=== PATIENT | female | born 1960 | race Caucasian/White ===

== ENCOUNTER 2018-12-21 21:21 | Inpatient (IN) | payer BC ==
[2018-12-21 22:39] LABS: ADD MAN DIFF? NO
[2018-12-21 22:42] LABS: WHITE BLOOD COUNT 6.8 10^3/ul (4.8-10.8)
[2018-12-21 22:42] LABS: ABNORMAL IP MESSAGE 1; BASOPHILS % 0.3 % (0.0-2.0); EOSINOPHILS # 0.1 10^3/ul (0.0-0.5); EOSINOPHILS % 0.7 % (0.0-7.0); LYMPHOCYTES % 14.2 % (15.0-51.0); MEAN CORPUSCULAR HEMOGLOBIN 31.8 pg (29.0-33.0); MEAN CORPUSCULAR HGB CONC 31.8 g/dl (32.0-37.0); MEAN PLATELET VOLUME 10.7 fl (7.4-10.4); MONOCYTE # 0.2 10^3/ul (0.3-0.9); MONOCYTES % 2.4 % (0.0-11.0); NEUTROPHIL # 5.5 10^3/ul (1.6-7.5); NEUTROPHILS % 81.2 % (39.0-77.0); NUCLEATED RED BLOOD CELLS% 0.4 /100WBC (0.0-0.0); PLATELET COUNT 73 10^3/UL (140-415); RED CELL DISTRIBUTION WIDTH 20.6 % (11.5-14.5)
[2018-12-21 22:59] LABS: POSITIVE DIFF @See below
[2018-12-21 23:01] LABS: ADD UMIC YES; ALANINE AMINOTRANSFERASE 54 IU/L (13-69); ALBUMIN 2.2 g/dl (3.3-4.9); ALKALINE PHOSPHATASE 223 IU/L (42-121); ANION GAP 16 (5-13); ASPARTATE AMINO TRANSFERASE 61 IU/L (15-46); BILIRUBIN,INDIRECT 1.8 mg/dl (0-1.1); BILIRUBIN,TOTAL 2.7 mg/dl (0.2-1.3); CALCIUM 7.9 mg/dl (8.4-10.2); CARBON DIOXIDE 25 mmol/L (21-31); CHLORIDE 100 mmol/L (97-110); GLUCOSE 96 mg/dl (70-220); INR 1.53; LIPASE 43 U/L (23-300); POTASSIUM 4.5 mmol/L (3.5-5.1); PROTIME 18.5 Sec (11.9-14.9); PT RATIO 1.4; SODIUM 141 mmol/L (135-144); TOTAL PROTEIN 5.3 g/dl (6.1-8.1); UR ASCORBIC ACID NEGATIVE (NEGATIVE); UR BACTERIA FEW /HPF (NONE SEEN); UR BILIRUBIN (Dip) NEGATIVE (NEGATIVE); UR BLOOD (Dip) 2+ mg/dL (NEGATIVE); UR BUDDING YEAST MANY /HPF (NONE SEEN); UR CLARITY CLOUDY (CLEAR); UR COLOR AMBER (YELLOW); UR GLUCOSE (Dip) NEGATIVE (NEGATIVE); UR KETONES (Dip) NEGATIVE (NEGATIVE); UR LEUKOCYTE ESTERASE (Dip) 3+ Leu/ul (NEGATIVE); UR MUCUS FEW /HPF (NONE SEEN); UR NITRITE (Dip) NEGATIVE (NEGATIVE); UR RBC 22 /HPF (0-5); UR SPECIFIC GRAVITY (Dip) 1.015 (1.003-1.030); UR TOTAL PROTEIN (Dip) 1+ mg/dl (NEGATIVE); UR UROBILINOGEN (Dip) NEGATIVE (NEGATIVE); UR WBC > 182 /HPF (0-5)
[2018-12-21 23:02] LABS: PARTIAL THROMBOPLASTIN TIME 46.8 Sec (23.0-35.0)
[2018-12-21 23:07] LABS: Estimated GFR 9 mL/min (>60)
[2018-12-21] MEDS: SOD CHLORIDE 0.9% 0 ML IV (23:09)
[2018-12-21 23:10] LABS: BLOOD UREA NITROGEN 128 mg/dl (7-20); CREATININE 5.02 mg/dl (0.44-1.00)
[2018-12-21 23:12] LABS: TROPONIN-I < 0.012 ng/ml (0.000-0.120)
[2018-12-21] MEDS ORDERED: ONDANSETRON 4 MG INJ IV (23:30)
[2018-12-21] MEDS ORDERED: ACETAMINOPHEN 325 MG TAB PO (23:30)
[2018-12-21] MEDS: SOD CHLORIDE 0.9% 1,000 ML IV (23:48)
[2018-12-22] MEDS ORDERED: HYDROCODONE/APAP (5/325) TAB PO
[2018-12-22] MEDS ORDERED: ONDANSETRON 4 MG INJ IV
[2018-12-22] MEDS ORDERED: ACETAMINOPHEN 325 MG TAB PO
[2018-12-22] MEDS ORDERED: NACL 0.9% 3 ML SYG IV
[2018-12-22 00:17] LABS: LACTIC ACID 2.7 mmol/L (0.5-2.0)
[2018-12-22] MEDS: HYDROCODONE/APAP (5/325) TAB PO (00:19)
[2018-12-22] MEDS: morphine 4 MG/ML VIAL IV (00:24)
[2018-12-22 03:46] LABS: LACTIC ACID 3.1 mmol/L (0.5-2.0)
[2018-12-22] MEDS ORDERED: PENDING SANTYL ORDER FOR WOUND CARE XX (05:30)
[2018-12-22] MEDS: CEFTRIAXONE 1 GM/50 ML (PMX) 50 ML IVPB ×2 (08:33)
[2018-12-22] MEDS: HEPARIN 5,000 UNIT/1 ML VIAL SC (08:39)
[2018-12-22] MEDS ORDERED: VANCOMYCIN IV PER PHARMACY XX (09:00)
[2018-12-22] MEDS: SOD CHLORIDE 0.9% 1,000 ML IV (09:48)
[2018-12-22 12:34] LABS: AADO2 Arterial 37.4 mmHg (7.0-24.0); Allen Test ACCEPTAB; Arterial Base Excess -0.4 mmol/L (-3.0-3); Arterial Blood Gas Oxygen Sat 93.6 mmHG (95.0-98.0); Arterial COHb 0.1 % (0.0-3.0); Arterial HCO3 22.7 mmol/L (22.0-26.0); Arterial MetHb 0.5 % (0.0-1.5); Arterial pCO2 31.3 mmhg (35-45); MODE ROOM AIR; Site Right Radial
[2018-12-22] MEDS: PHYTONADIONE 10 MG in DEXTROSE 5% 50 ML IVPB (14:12)
[2018-12-22] MEDS: ALBUMIN HUMAN 25% 100 ML IV ×2 (14:28→21:08)
[2018-12-22] MEDS: FLUCONAZOLE 100 MG/50 ML (PMX) 50 ML IVPB ×2 (14:30→14:57)
[2018-12-22 15:07] LABS: ADD MAN DIFF? NO
[2018-12-22 15:12] LABS: ABNORMAL IP MESSAGE 1; BASOPHILS % 0.3 % (0.0-2.0); EOSINOPHILS # 0.1 10^3/ul (0.0-0.5); HEMATOCRIT 26.3 % (37.0-47.0); HEMOGLOBIN 8.6 g/dl (12.0-16.0); LYMPHOCYTES # 1.1 10^3/ul (0.8-2.9); MEAN CORPUSCULAR HEMOGLOBIN 30.5 pg (29.0-33.0); MEAN CORPUSCULAR HGB CONC 32.7 g/dl (32.0-37.0); MEAN CORPUSCULAR VOLUME 93.3 fl (82.0-101.0); MEAN PLATELET VOLUME 10.7 fl (7.4-10.4); MONOCYTE # 0.2 10^3/ul (0.3-0.9); MONOCYTES % 3.3 % (0.0-11.0); NEUTROPHIL # 5.5 10^3/ul (1.6-7.5); NEUTROPHILS % 77.5 % (39.0-77.0); NUCLEATED RED BLOOD CELLS% 0.6 /100WBC (0.0-0.0); PLATELET COUNT 63 10^3/UL (140-415); RED BLOOD COUNT 2.82 10^6/ul (4.20-5.40); RED CELL DISTRIBUTION WIDTH 21.2 % (11.5-14.5)
[2018-12-22 15:34] LABS: ALANINE AMINOTRANSFERASE 53 IU/L (13-69); ALBUMIN 2.4 g/dl (3.3-4.9); ALKALINE PHOSPHATASE 201 IU/L (42-121); ANION GAP 16 (5-13); ASPARTATE AMINO TRANSFERASE 51 IU/L (15-46); BILIRUBIN,INDIRECT 1.6 mg/dl (0-1.1); BILIRUBIN,TOTAL 2.6 mg/dl (0.2-1.3); CALCIUM 7.5 mg/dl (8.4-10.2); CARBON DIOXIDE 23 mmol/L (21-31); CHLORIDE 101 mmol/L (97-110); CHOL/HDL RATIO 7.3 RATIO; CHOLESTEROL 95 mg/dl (100-200); GLUCOSE 82 mg/dl (70-220); HDL CHOLESTEROL 13 mg/dl (37-92); LDL CHOLESTEROL,CALCULATED 64 mg/dl; MAGNESIUM 2.2 mg/dl (1.7-2.5); POSITIVE DIFF @See below; POTASSIUM 4.4 mmol/L (3.5-5.1); SODIUM 140 mmol/L (135-144); TOTAL PROTEIN 5.4 g/dl (6.1-8.1); TRIGLYCERIDES 92 mg/dl (0-149)
[2018-12-22] MEDS: LIDOCAINE 1% (MPF) 5 ML VIAL SC (15:39)
[2018-12-22 15:40] LABS: Estimated GFR 8 mL/min (>60)
[2018-12-22 15:41] LABS: % IRON SATURATION 51 % SAT (22-52); TOTAL IRON BINDING CAPACITY 144 ug/dl (241-421)
[2018-12-22 15:48] LABS: BLOOD UREA NITROGEN 128 mg/dl (7-20); CREATININE 5.25 mg/dl (0.44-1.00); IRON 74 ug/dl (35-150)
[2018-12-22] MEDS: VANCOMYCIN HCL 2 GM in SOD CHLORIDE 0.9% 500 ML IVPB (15:58)
[2018-12-22 16:08] LABS: LACTIC ACID 2.8 mmol/L (0.5-2.0)
[2018-12-22 16:37] LABS: FOLATE 10.1 ng/ml (2.8-20.0)
[2018-12-22 16:50] LABS: ANISOCYTOSIS 2+ (0-0); BAND NEUTROPHILS #M 0.8 10^3/ul (0.0-0.6); BAND NEUTROPHILS % (M) 12 % (0-4); EOSINOPHILS % (M) 4 % (0-7); LYMPHOCYTES #M 1.3 10^3/ul (0.8-2.9); LYMPHOCYTES % (M) 19 % (15-51); METAMYELOCYTES %M 1 % (0-0); MONOCYTE #M 0.2 10^3/ul (0.3-0.9); MONOCYTES % (M) 3 % (0-11); PLATELET ESTIMATE DECREASED; POIKILOCYTOSIS 3+ (0-0); POLYCHROMASIA 3+ (0-0); SEG NEUT #M 4.3 10^3/ul (1.6-7.5); SEGMENTED NEUTROPHILS (M) % 60 % (39-77); SMUDGE%M 6 % (0-0)
[2018-12-22 17:13] LABS: AMMONIA 92 umol/l (9-30)
[2018-12-22 17:17] LABS: PLATELET COUNT 75 10^3/UL (140-415)
[2018-12-22 17:42] LABS: PROTIME 20.1 Sec (11.9-14.9); PT RATIO 1.6
[2018-12-22 17:43] LABS: PARTIAL THROMBOPLASTIN TIME 45.1 Sec (23.0-35.0)
[2018-12-22 17:45] LABS: D-DIMER 3371.23 ng/ml (<460); THROMBIN TIME 18.6 SEC (13.8-19.1)
[2018-12-22 18:30] LABS: HEPATITIS B SURFACE ANTIGEN NEGATIVE (NEGATIVE)
[2018-12-22 18:47] LABS: HEPATITIS B SURFACE ANTIBODY NEGATIVE (NEGATIVE)
[2018-12-22 18:49] LABS: FIBRIN SPLIT PRODUCT >10 and <40 ug/ml (<10)
[2018-12-22 20:28] LABS: HEMOGLOBIN A1C 4.9 % (0-5.9)
[2018-12-22 20:53] LABS: TYPE AND SCREEN 1
[2018-12-22 21:57] LABS: IMMEDIATE SPIN CROSSMATCH 1 3
[2018-12-22] MEDS: NYSTATIN 30 GM POWDER BTL TOP (22:05)
[2018-12-23 04:28] LABS: ADD UMIC YES; UR ASCORBIC ACID NEGATIVE (NEGATIVE); UR BACTERIA FEW /HPF (NONE SEEN); UR BILIRUBIN (Dip) NEGATIVE (NEGATIVE); UR BLOOD (Dip) 2+ mg/dL (NEGATIVE); UR BUDDING YEAST MANY /HPF (NONE SEEN); UR CLARITY CLOUDY (CLEAR); UR COLOR AMBER (YELLOW); UR GLUCOSE (Dip) NEGATIVE (NEGATIVE); UR KETONES (Dip) TRACE mg/dL (NEGATIVE); UR LEUKOCYTE ESTERASE (Dip) 3+ Leu/ul (NEGATIVE); UR MUCUS FEW /HPF (NONE SEEN); UR NITRITE (Dip) NEGATIVE (NEGATIVE); UR RBC 53 /HPF (0-5); UR SPECIFIC GRAVITY (Dip) 1.014 (1.003-1.030); UR TOTAL PROTEIN (Dip) NEGATIVE (NEGATIVE); UR UROBILINOGEN (Dip) NEGATIVE (NEGATIVE); UR WBC 88 /HPF (0-5)
[2018-12-23 04:30] LABS: POTASSIUM,URINE RANDOM 58.6 mmol/L (25-125)
[2018-12-23 04:38] LABS: SODIUM,URINE RANDOM < 13 mmol/L (30-90)
[2018-12-23] MEDS: ALBUMIN HUMAN 25% 100 ML IV (05:18)
[2018-12-23] MEDS: PANTOPRAZOLE 40 MG INJ IV (05:20)
[2018-12-23 06:46] LABS: WHITE BLOOD COUNT 3.7 10^3/ul (4.8-10.8)
[2018-12-23 06:46] LABS: ABNORMAL IP MESSAGE 1; HEMATOCRIT 21.6 % (37.0-47.0); MEAN CORPUSCULAR HEMOGLOBIN 30.4 pg (29.0-33.0); MEAN CORPUSCULAR HGB CONC 32.4 g/dl (32.0-37.0); MEAN CORPUSCULAR VOLUME 93.9 fl (82.0-101.0); MEAN PLATELET VOLUME 10.2 fl (7.4-10.4); NUCLEATED RED BLOOD CELLS% 0.5 /100WBC (0.0-0.0); PLATELET COUNT 70 10^3/UL (140-415); RED CELL DISTRIBUTION WIDTH 22.6 % (11.5-14.5)
[2018-12-23 06:56] LABS: ADD MAN DIFF? YES; POSITIVE DIFF @See below
[2018-12-23 07:11] LABS: ALANINE AMINOTRANSFERASE 48 IU/L (13-69); ALBUMIN 2.5 g/dl (3.3-4.9); ALKALINE PHOSPHATASE 151 IU/L (42-121); ANION GAP 13 (5-13); ASPARTATE AMINO TRANSFERASE 42 IU/L (15-46); BILIRUBIN,INDIRECT 1.7 mg/dl (0-1.1); BILIRUBIN,TOTAL 2.8 mg/dl (0.2-1.3); CALCIUM 7.1 mg/dl (8.4-10.2); CARBON DIOXIDE 23 mmol/L (21-31); CHLORIDE 106 mmol/L (97-110); GLUCOSE 60 mg/dl (70-220); SODIUM 142 mmol/L (135-144)
[2018-12-23 07:17] LABS: Estimated GFR 9 mL/min (>60)
[2018-12-23 07:21] LABS: BLOOD UREA NITROGEN 124 mg/dl (7-20); CREATININE 4.79 mg/dl (0.44-1.00)
[2018-12-23 08:07] LABS: ANISOCYTOSIS 2+ (0-0); BAND NEUTROPHILS #M 0.5 10^3/ul (0.0-0.6); BAND NEUTROPHILS % (M) 15 % (0-4); BURR CELLS 1+ (0-0); EOSINOPHILS % (M) 3 % (0-7); ERYTHROBLAST% (NRBC) (M) 1 % (0-0); LYMPHOCYTES #M 0.8 10^3/ul (0.8-2.9); LYMPHOCYTES % (M) 24 % (15-51); METAMYELOCYTES %M 1 % (0-0); MICROCYTOSIS 1+ (0-0); MONOCYTES % (M) 2 % (0-11); MYELOCYTES % (M) 1 % (0-0); OVALOCYTES 1+ (0-0); PLATELET ESTIMATE SIG DECREASED; POIKILOCYTOSIS 2+ (0-0); POLYCHROMASIA 3+ (0-0); PROMYELOCYTES % (M) 1 % (0-0); REACTIVE LYMPHOCYTES #M 0.1 10^3/ul (0.0-0.0); REACTIVE LYMPHOCYTES% (M) 3 % (0-0); SEG NEUT #M 1.9 10^3/ul (1.6-7.5); SEGMENTED NEUTROPHILS (M) % 50 % (39-77); SMUDGE%M 6 % (0-0); TARGET CELLS 1+ (0-0)
[2018-12-23] MEDS: SOD CHLORIDE 0.9% 1,000 ML IV ×2 (09:19→13:12)
[2018-12-23] MEDS: CEFTRIAXONE 1 GM/50 ML (PMX) 50 ML IVPB (09:20)
[2018-12-23] MEDS: COLLAGENASE 5 GM (UD JAR) TOP (09:20)
[2018-12-23] MEDS: NYSTATIN 30 GM POWDER BTL TOP ×2 (09:20→21:24)
[2018-12-23] MEDS: LACTULOSE 30ML CUP PO ×2 (13:15→21:23)
[2018-12-23 16:54] LABS: IMMEDIATE SPIN CROSSMATCH 1
[2018-12-23] MEDS: DEXTROSE 5%-0.9% NACL 1,000 ML IV (21:24)
[2018-12-23] MEDS: ALBUTEROL/IPRATROPIUM (NEB) 3 ML AMP HHN (21:52)
[2018-12-23 23:33] LABS: AADO2 Arterial 617.4 mmHg (7.0-24.0); Allen Test ACCEPTAB; Arterial Base Excess 0.1 mmol/L (-3.0-3); Arterial Blood Gas Oxygen Sat 84.1 mmHG (95.0-98.0); Arterial COHb 0.1 % (0.0-3.0); Arterial Fraction of Oxyhgb 83.7 % (93.0-99.0); Arterial HCO3 24.9 mmol/L (22.0-26.0); Arterial MetHb 0.4 % (0.0-1.5); Arterial pCO2 40.9 mmhg (35-45); MODE NASAL CANNULA; Site Right Radial
[2018-12-24] MEDS: ALBUMIN HUMAN 25% 100 ML IV
[2018-12-24] MEDS: DEXTROSE 10% 1,000 ML IV (00:04)
[2018-12-24] MEDS ORDERED: MANNITOL 25% 50 ML IV (01:30)
[2018-12-24] MEDS ORDERED: PHENYLephrine 80 MG in DEXTROSE 5% 242 ML IV (01:30)
[2018-12-24] MEDS ORDERED: PHENYLephrine 20MG IN 250 ML 250 ML (01:42)
[2018-12-24 01:52] LABS: AADO2 Arterial 625.3 mmHg (7.0-24.0); Allen Test ACCEPTAB; Arterial Base Excess -1.9 mmol/L (-3.0-3); Arterial COHb 0.3 % (0.0-3.0); Arterial Fraction of Oxyhgb 52.5 % (93.0-99.0); Arterial HCO3 25.1 mmol/L (22.0-26.0); Arterial MetHb 0.6 % (0.0-1.5); Arterial pCO2 53.5 mmhg (35-45); MODE MASK - NRB; Site Right Radial
[2018-12-24] MEDS ORDERED: VASOPRESSIN 60 UNIT in DEXTROSE 5% 57 ML IV (02:00)
[2018-12-24] MEDS ORDERED: EPINEPHrine 4 MG in DEXTROSE 5% 246 ML IV (03:00)
[2018-12-24] MEDS: EPINEPHrine 0.1 MG/ML SYG IV (03:16)
[2018-12-25 15:46] LABS: CREATININE, RANDOM URINE 84 mg/dL (20-275); MICROALBUMIN 6.9 mg/dL; MICROALBUMIN/CREATININE RATIO 82 (<30)
== END 2018-12-24 02:37 | disposition expired | DRG 871 ==
LOC: 6WM 23:13 → E/R 21:21 → ICU 12-22 18:30
PROVIDERS: Pediatrics Neonatal-Perinatal Medicine
PROC: 02HV33Z Insertion of Infusion Device into Superior Vena Cava, Percutaneous Approach (ICD-10-PCS; principal; 2018-12-22)
PROC: 30243K1 Transfusion of Nonautologous Frozen Plasma into Central Vein, Percutaneous Approach (ICD-10-PCS; 2018-12-22)
PROC: 30243N1 Transfusion of Nonautologous Red Blood Cells into Central Vein, Percutaneous Approach (ICD-10-PCS; 2018-12-22)
PROC: 30243R1 Transfusion of Nonautologous Platelets into Central Vein, Percutaneous Approach (ICD-10-PCS; 2018-12-22)
PROC: 4A133R1 Monitoring of Arterial Saturation, Peripheral, Percutaneous Approach (ICD-10-PCS; 2018-12-22)
PROC: 5A1D70Z Performance of Urinary Filtration, Intermittent, Less than 6 Hours Per Day (ICD-10-PCS; 2018-12-24)
DX: A41.9 Sepsis, unspecified organism (principal); I50.33 Acute on chronic diastolic (congestive) heart failure; J69.0 Pneumonitis due to inhalation of food and vomit; N18.6 End stage renal disease; N17.9 Acute kidney failure, unspecified; I13.2 Hypertensive heart and chronic kidney disease with heart failure and with stage 5 chronic kidney disease, or end stage renal disease; D61.818 Other pancytopenia; B37.49 Other urogenital candidiasis; Z68.44 Body mass index [BMI] 60.0-69.9, adult; N25.81 Secondary hyperparathyroidism of renal origin; D68.4 Acquired coagulation factor deficiency; E87.2 Acidosis; Z66 Do not resuscitate; E78.2 Mixed hyperlipidemia; E66.01 Morbid (severe) obesity due to excess calories; G47.33 Obstructive sleep apnea (adult) (pediatric); I73.9 Peripheral vascular disease, unspecified; K72.90 Hepatic failure, unspecified without coma; K75.81 Nonalcoholic steatohepatitis (NASH); K74.60 Unspecified cirrhosis of liver; Z89.612 Acquired absence of left leg above knee
CPT/HCPCS: 36430; 36569; 36600; 70450; 71045; 71250; 74176; 76705; 76775; 80053; 80061; 81001; 81003; 82043; 82140; 82436; 82607; 82728; 82746; 82803; 82962; 83036; 83540; 83605; 83690; 83735; 84133; 84155; 84300; 84443; 84484; 85025; 85049; 85362; 85378; 85384; 85610; 85670; 85730; 86644; 86706; 86850; 86900; 86901; 86920; 86945; 87040; 87081; 87086; 87340; 90686; 90935; 94664; 99291-25